=== PATIENT | female | born 1965 | race Caucasian/White ===

== ENCOUNTER → 2016-11-11 | Outpatient (CLI) | payer OTHER ==
[~2016-11-11] MED LIST: AUGMENTIN875 MG PO; BENADRYL50 MG PO; CARAFATE1 GM PO; COLACE100 MG PO; CYCLOBENZAPRINE10 MG PO; DESVENLAFAXINE50 MG PO; DICYCLOMINE HCL10 MG PO; DOCUSATE SODIU100 MG PO; DULOXETINE HCL60 MG PO; ESTRADIOL0.5 MG PO; FIORICET WI1 CAPSULE PO; FIORICET,ESG1 TABLET PO; FOLIC ACID0.8 MG PO; FOLIC ACID1 MG PO; HYDROCHLOROTH12.5 M3 PO; HYDROCODON-ACE1 EAC7 PO; IMITREX25 MG PO; IRON325 M1 PO; IRON325 MG PO; KHEDEZLA50 MG PO; LECITHIN1200 MG PO; LORTAB 5-325 M1 EACH PO; LYRICA75 MG PO; MEGESTROL ACETA20 MG PO; METOPROLOL SUCC50 MG PO; MOTRIN800 MG PO; MULTI VITAMIN1 EACH PO; NAPROXEN500 MG PO; NORCO 10/3251 TABLET PO; NORCO 5/3251 TABLET PO; OMEPRAZOLE40 M1 PO; OXYCODONE HCL5 MG PO; PEN-VEE K,VEET500 MG PO; PRILOSEC40 MG PO; PROAIR HFA8.5 GM IH; PROMETHAZINE HC25 M1 PO; PROPRANOLOL HCL80 M1 PO; REGLAN10 MG PO; RELPAX40 MG PO; SKELAXIN800 MG PO; SUCRALFATE1 GM PO; SUMATRIPTAN SUC50 MG PO; TIZANIDINE HCL4 MG PO; TOPAMAX100 MG PO; TOPAMAX25 MG PO; TOPIRAMATE50 MG PO; TRAZODONE HCL100 MG PO; TROKENDI XR100 MG PO; ULTRAM50 MG PO; VALIUM5 MG PO; VALTREX50 MG/ML PO; VOLTAREN 1% GE100 GM TP; ZOFRAN ODT4 MG PO; ZOFRAN4 MG PO; ZOMIG2.5 M1 NS; ZOMIG5 M1 NS
== END | disposition home or self-care (01) ==
LOC: NUC 10-30 09:00
DX: R94.8 Abnormal results of function studies of other organs and systems (principal); R10.13 Epigastric pain
CPT/HCPCS: 78264; A9541

== ENCOUNTER 2016-11-26 15:01 | Emergency (ER) | payer OTHER ==
[~2016-11-26] VITALS: Ht 157.5 cm; Wt 107.3 kg
[2016-11-26 18:57] VITALS: BP 155/100
== END 2016-11-26 18:59 | disposition home or self-care (01) ==
LOC: EME 15:01
DX: G43.909 Migraine, unspecified, not intractable, without status migrainosus (principal)
CPT/HCPCS: 99281; 99285; J1100; J1200; J1885; J7050

== ENCOUNTER → 2017-05-25 | Outpatient (CLI) | payer OTHER | END | disposition home or self-care (01) | DX: R26.2 Difficulty in walking, not elsewhere classified (principal); M25.562 Pain in left knee; M25.662 Stiffness of left knee, not elsewhere classified; M17.12 Unilateral primary osteoarthritis, left knee; M62.81 Muscle weakness (generalized); Z74.1 Need for assistance with personal care | CPT/HCPCS: 97161 GP; 97165 GO; 97530 GP; 97537 GO ==

== ENCOUNTER 2017-06-20 21:35 | Inpatient (IN) | payer OTHER ==
[~2017-06-20] VITALS: Ht 157.5 cm; Wt 109.8 kg
[~2017-06-20 21:35] MED LIST changes: +AMBIEN5 MG PO; +GABAPENTIN400 MG PO; +LINZESS145 MCG PO; +LORAZEPAM0.5 MG PO; +OPANA IR10 MG PO; +OXYMORPHONE HCL10 M1 PO; +REQUIP1 MG PO; +SEROQUEL300 MG PO
[2017-06-21 07:25] VITALS: BP 135/86
[2017-06-21 12:32] LABS: HEMATOCRIT 38.4 % (36.0-46.0); MCH 29.3 PG (29.0-34.0); MCHC 31.8 G/DL (30.0-36.0); MCV 92.1 FL (83-99); MEAN PLAT.VOLUME 10.1 uM^3 (9.5-12.4); PLATELET COUNT 176 K/uL (156-360); RED BLOOD COUNT 4.17 M/uL (3.80-5.20); WHITE BLOOD COUNT 9.9 K/uL (4.1-10.2)
[2017-06-21 14:32] VITALS: BP 142/97
[2017-06-21 15:49] VITALS: BP 152/99
[2017-06-21 19:50] VITALS: BP 161/84
[2017-06-22 00:26] VITALS: BP 127/68
[2017-06-22 04:03] VITALS: BP 124/73
[2017-06-22 05:05] LABS: HEMATOCRIT 34.1 % (36.0-46.0); MCV 90.7 FL (83-99)
[2017-06-22 05:59] LABS: ANION GAP 9 MEQ/L (2-14); CHLORIDE 105 MEQ/L (99-109); GFR ESTIMATE (CALCULATED) > 59 mL/min/; GLUCOSE 121 mg/dL (70-99); POTASSIUM 4.5 MEQ/L (3.7-5.4); SAMPLE HEMOLYSIS CHECK 0; SAMPLE ICTERIC CHECK 0; SAMPLE LIPEMIA CHECK 0; SODIUM 140 MEQ/L (136-147); UREA NITROGEN (BUN) 10 mg/dL (9-23)
[2017-06-22 07:08] VITALS: BP 121/72
[2017-06-22 11:40] VITALS: BP 119/69
[2017-06-22 15:51] VITALS: BP 123/78
[2017-06-22 20:17] VITALS: BP 135/78
[2017-06-23 00:01] VITALS: BP 138/79
[2017-06-23 04:20] VITALS: BP 124/70
[2017-06-23 06:16] LABS: HEMATOCRIT 32.5 % (36.0-46.0); MCV 93.4 FL (83-99)
[2017-06-23 08:07] VITALS: BP 112/63
[2017-06-23] MEDS ORDERED: LOVENOX40 MG/0.4 SC (08:34)
[2017-06-23] MEDS ORDERED: ENDOCET 5-3251 EACH PO (08:34)
[2017-06-23 11:42] VITALS: BP 101/58
== END 2017-06-23 14:54 | DRG 470 ==
LOC: ENRESERV 21:35 → 2SOUTH 06-21 06:46 → 3WEST 06-21 13:57 → 2SOUTH 06-21 14:06 → 3WEST 06-23 14:54
PROVIDERS: Orthopaedic Surgery
PROC: 0SRD0J9 Replacement of Left Knee Joint with Synthetic Substitute, Cemented, Open Approach (ICD-10-PCS; principal; 2017-06-21)
DX: M17.12 Unilateral primary osteoarthritis, left knee (principal); E66.9 Obesity, unspecified; Z68.41 Body mass index [BMI] 40.0-44.9, adult; I10 Essential (primary) hypertension; M79.7 Fibromyalgia; D50.9 Iron deficiency anemia, unspecified; K21.9 Gastro-esophageal reflux disease without esophagitis; G89.29 Other chronic pain; K25.7 Chronic gastric ulcer without hemorrhage or perforation; K58.9 Irritable bowel syndrome, unspecified; F41.8 Other specified anxiety disorders; Z86.010 Personal history of colon polyps; Z82.49 Family history of ischemic heart disease and other diseases of the circulatory system; Z83.3 Family history of diabetes mellitus
CPT/HCPCS: 73560; 80048; 85014; 85018; 85027; 97530 GO; C1713; J0131; J0690; J1170; J1650; J1885; J2250; J3010; J7050

== ENCOUNTER → 2017-10-18 | Outpatient (CLI) | payer OTHER ==
[~2017-10-18] VITALS: Ht 157.5 cm; Wt 110.2 kg
[~2017-10-18] MED LIST changes: +B-12 COMPL1000 MCG/1 IM; +ENDOCET 5-3251 EACH PO; +FLONASE ALLERG9.9 ML BOTH NARES; +LOVENOX40 MG/0.4 SC; +OMEGA-3 KRILL1 EAC3 PO; +SEROQUEL100 MG PO; +TIZANIDINE HCL2 MG PO; +TURMERIC COMPL1 EACH PO
== END | disposition home or self-care (01) ==
LOC: AMB 06:56
PROC: 0DB68ZX Excision of Stomach, Via Natural or Artificial Opening Endoscopic, Diagnostic (ICD-10-PCS; principal; 2017-10-18)
DX: K29.60 Other gastritis without bleeding (principal); D62 Acute posthemorrhagic anemia; Z80.0 Family history of malignant neoplasm of digestive organs; Z83.3 Family history of diabetes mellitus; Z82.49 Family history of ischemic heart disease and other diseases of the circulatory system; Z81.8 Family history of other mental and behavioral disorders; Z82.0 Family history of epilepsy and other diseases of the nervous system; Z88.5 Allergy status to narcotic agent; Z88.8 Allergy status to other drugs, medicaments and biological substances
CPT/HCPCS: 88305; 88342 TC

== ENCOUNTER 2017-12-26 19:16 | Emergency (ER) | payer OTHER ==
[~2017-12-26] VITALS: Ht 157.5 cm; Wt 72.7 kg
[2017-12-26 19:47] LABS: HEMATOCRIT 38.1 % (36.0-46.0); HEMOGLOBIN 12.6 G/DL (11.9-15.5); MCH 28.6 PG (29.0-34.0); MCHC 33.1 G/DL (30.0-36.0); MCV 86.4 FL (83-99); PLATELET COUNT 193 K/uL (156-360); RBC DIS.WIDTH-CV 13.5 % (11.8-14.6); RBC DIS.WIDTH-SD 42.1 % (39-53); RED BLOOD COUNT 4.41 M/uL (3.80-5.20)
[2017-12-26 20:00] LABS: CHLORIDE 105 mEq/L (99-109); SODIUM 139 mEq/L (136-147)
[2017-12-26 20:02] LABS: GLUCOSE 102 mg/dL (70-99)
[2017-12-26 20:06] LABS: CREATININE 1.1 mg/dL (0.6-1.3); GFR ESTIMATE (CALCULATED) 55 mL/min/
[2017-12-26 20:07] LABS: TROP-I INTERPRETATION NEGATIVE; TROPONIN-I < 0.01 ng/mL (0.0-0.30); UREA NITROGEN (BUN) 14 mg/dL (9-23)
[2017-12-26 21:08] LABS: CREATINE KINASE 126 IU/L (1-294)
[2017-12-26 22:14] LABS: APPEARANCE CLEAR ((CLEAR)); BILIRUBIN NEGATIVE; BLOOD NEGATIVE; COLOR YELLOW ((YELLOW)); GLUCOSE (STRIP) NEGATIVE; KETONES NEGATIVE; LEUKOCYTES NEGATIVE; NITRITE NEGATIVE; PROTEIN (STRIP) NEGATIVE; SPECIFIC GRAVITY 1.016 (1.000-1.030); UROBILINOGEN 0.2 MG/DL (0.2-1.0)
[2017-12-26] MEDS ORDERED: PREDNISONE20 MG PO (22:44)
[2017-12-26 23:05] VITALS: BP 146/94
== END 2017-12-26 23:05 | disposition home or self-care (01) ==
LOC: EME 19:16
PROVIDERS: Physician Assistant
DX: M79.7 Fibromyalgia (principal); R07.89 Other chest pain; G89.29 Other chronic pain; R53.1 Weakness; M79.605 Pain in left leg; G43.909 Migraine, unspecified, not intractable, without status migrainosus; Z87.19 Personal history of other diseases of the digestive system; Z96.652 Presence of left artificial knee joint; Z88.5 Allergy status to narcotic agent; Z88.8 Allergy status to other drugs, medicaments and biological substances
CPT/HCPCS: 71046; 80048; 81003; 82550; 84484; 85027; 93005; 93971; 99281; 99285; J1885; J7512

== ENCOUNTER 2018-03-01 09:46 | Day surgery (SDC) | payer OTHER ==
[~2018-03-01] VITALS: Ht 157.5 cm; Wt 115.7 kg
[~2018-03-01 09:46] MED LIST changes: +AMBIEN10 MG PO; +CYMBALTA30 MG PO; -DULOXETINE HCL60 MG PO; -GABAPENTIN400 MG PO; +LEVBID0.375 MG PO; +MS CONTIN,ORAMO15 M1 PO; +NEURONTIN300 MG PO; +PREDNISONE20 MG PO; +PRILOSEC20 MG PO; +ROXICODONE15 MG PO; -SEROQUEL100 MG PO; +SEROQUEL400 MG PO; +VALTREX1000 MG PO; -VALTREX50 MG/ML PO
== END 2018-03-01 11:30 | disposition home or self-care (01) ==
LOC: PAIN 09:46 → SDC 10:45 → PAIN 11:30
PROC: 3E0T3BZ Introduction of Anesthetic Agent into Peripheral Nerves and Plexi, Percutaneous Approach (ICD-10-PCS; principal; 2018-03-01)
PROC: 3E0T33Z Introduction of Anti-inflammatory into Peripheral Nerves and Plexi, Percutaneous Approach (ICD-10-PCS; principal; 2018-03-01)
PROC: BR141ZZ Fluoroscopy of Cervical Facet Joint(s) using Low Osmolar Contrast (ICD-10-PCS; principal; 2018-03-01)
DX: M47.812 Spondylosis without myelopathy or radiculopathy, cervical region (principal); M48.02 Spinal stenosis, cervical region; M47.816 Spondylosis without myelopathy or radiculopathy, lumbar region; M79.7 Fibromyalgia; I10 Essential (primary) hypertension; M25.562 Pain in left knee; G89.29 Other chronic pain; Z88.5 Allergy status to narcotic agent; Z88.8 Allergy status to other drugs, medicaments and biological substances
CPT/HCPCS: J1030; J2250; S0020

== ENCOUNTER 2018-03-08 07:01 | Day surgery (SDC) | payer OTHER ==
[~2018-03-08] VITALS: Ht 157.5 cm; Wt 115.7 kg
== END 2018-03-08 08:45 | disposition home or self-care (01) ==
LOC: PAIN 07:01 → SDC 07:45 → PAIN 08:45
DX: M47.812 Spondylosis without myelopathy or radiculopathy, cervical region (principal); M79.7 Fibromyalgia; M47.816 Spondylosis without myelopathy or radiculopathy, lumbar region; I10 Essential (primary) hypertension; K21.9 Gastro-esophageal reflux disease without esophagitis; Z88.5 Allergy status to narcotic agent; E66.9 Obesity, unspecified; Z68.42 Body mass index [BMI] 45.0-49.9, adult
CPT/HCPCS: J1030; J2250; J3010; S0020

== ENCOUNTER 2018-03-21 04:30 | Inpatient (IN) | payer OTHER ==
[~2018-03-21] VITALS: Ht 157.5 cm; Wt 120.0 kg
[2018-03-21 05:18] LABS: CHLORIDE 104 mEq/L (99-109); POTASSIUM 3.8 mEq/L (3.7-5.4); SODIUM 139 mEq/L (136-147)
[2018-03-21 05:21] LABS: GLUCOSE 140 mg/dL (70-99); TOTAL PROTEIN 6.5 g/dL (6.4-8.3)
[2018-03-21 05:22] LABS: TOTAL BILIRUBIN 0.5 mg/dL (0.0-1.0)
[2018-03-21 05:24] LABS: ALKALINE PHOSPHATASE 128 IU/L (3-129); CREATININE 0.8 mg/dL (0.6-1.3); GFR ESTIMATE (CALCULATED) > 59 mL/min/
[2018-03-21 05:25] LABS: UREA NITROGEN (BUN) 19 mg/dL (9-23)
[2018-03-21 05:26] LABS: AST (GOT) 35 IU/L (2-34); DIRECT BILIRUBIN 0.1 mg/dL (0.0-0.3)
[2018-03-21 05:27] LABS: ALT (GPT) 28 IU/L (3-49)
[2018-03-21 05:31] LABS: TROP-I INTERPRETATION NEGATIVE; TROPONIN-I < 0.01 ng/mL (0.0-0.30)
[2018-03-21 05:32] LABS: PTT 22.3 SEC (25-37)
[2018-03-21 05:40] LABS: BASOPHIL (%) 0.2 % (0-1); EOSINOPHIL (%) 0.8 % (0-5); EOSINOPHIL COUNT 0.1 K/uL (0-0.3); HEMATOCRIT 38.3 % (36.0-46.0); HEMOGLOBIN 12.7 G/DL (11.9-15.5); IMMATURE GRANULOCYTE (%) 0.3 % (0.0-0.7); LYMPHOCYTE (%) 13.7 % (15-42); LYMPHOCYTE COUNT 1.3 K/uL (1.0-2.8); MCH 30.4 PG (29.0-34.0); MCHC 33.2 G/DL (30.0-36.0); MCV 91.6 FL (83-99); MONOCYTE (%) 4.1 % (3-12); MONOCYTE COUNT 0.4 K/uL (0-0.8); NEUTROPHIL (%) 80.9 % (45-76); NEUTROPHIL COUNT 7.9 K/uL (1.8-6.4); PLATELET COUNT 150 K/uL (156-360); RBC DIS.WIDTH-CV 15.1 % (11.8-14.6); RBC DIS.WIDTH-SD 50.5 % (39-53); RED BLOOD COUNT 4.18 M/uL (3.80-5.20); WHITE BLOOD COUNT 9.8 K/uL (4.1-10.2)
[2018-03-21] MEDS ORDERED: CATAPRES0.1 MG PO (07:46)
[2018-03-21] MEDS ORDERED: LIPITOR20 MG PO (07:46)
[2018-03-21] MEDS ORDERED: BUSPAR7.5 MG PO (07:46)
[2018-03-21 08:56] VITALS: BP 131/60
[2018-03-21 11:31] VITALS: BP 108/64
[2018-03-21 14:28] LABS: APPEARANCE CLEAR ((CLEAR)); BILIRUBIN NEGATIVE; BLOOD NEGATIVE; COLOR YELLOW ((YELLOW)); GLUCOSE (STRIP) NEGATIVE; KETONES NEGATIVE; LEUKOCYTES NEGATIVE; NITRITE NEGATIVE; PROTEIN (STRIP) NEGATIVE; SPECIFIC GRAVITY 1.057 (1.000-1.030); UCUL ADDED? NO
[2018-03-21 19:40] VITALS: BP 117/63
[2018-03-21 23:17] VITALS: BP 101/54
[2018-03-22 04:18] VITALS: BP 118/60
[2018-03-22 06:15] LABS: CHLORIDE 107 MEQ/L (99-109); CREATININE 0.7 MG/DL (0.6-1.3); GFR ESTIMATE (CALCULATED) > 59 mL/min/; POTASSIUM 3.7 MEQ/L (3.7-5.4); SODIUM 139 MEQ/L (136-147); UREA NITROGEN (BUN) 11 mg/dL (9-23)
[2018-03-22 06:17] LABS: GLUCOSE 91 mg/dL (70-99)
[2018-03-22 07:05] LABS: BASOPHIL (%) 0.3 % (0-1); EOSINOPHIL COUNT 0.2 K/uL (0-0.3); HEMATOCRIT 30.2 % (36.0-46.0); IMMATURE GRANULOCYTE (%) 0.3 % (0.0-0.7); LYMPHOCYTE (%) 17.4 % (15-42); LYMPHOCYTE COUNT 1.6 K/uL (1.0-2.8); MCHC 32.5 G/DL (30.0-36.0); MCV 92.4 FL (83-99); MONOCYTE (%) 5.7 % (3-12); MONOCYTE COUNT 0.5 K/uL (0-0.8); NEUTROPHIL (%) 74.3 % (45-76); PLATELET COUNT 130 K/uL (156-360); RBC DIS.WIDTH-CV 15.3 % (11.8-14.6); RBC DIS.WIDTH-SD 51.8 % (39-53); WHITE BLOOD COUNT 9.5 K/uL (4.1-10.2)
[2018-03-22 07:09] LABS: HEMOGLOBIN 9.8 G/DL (11.9-15.5); RED BLOOD COUNT 3.27 M/uL (3.80-5.20)
[2018-03-22 08:01] VITALS: BP 116/72
[2018-03-22 16:57] VITALS: BP 126/60
[2018-03-22 19:00] VITALS: BP 100/65
[2018-03-22 23:09] VITALS: BP 138/74
[2018-03-23 03:24] VITALS: BP 103/56
[2018-03-23 06:14] LABS: HEMATOCRIT 32.8 % (36.0-46.0); HEMOGLOBIN 10.4 G/DL (11.9-15.5); MCH 29.5 PG (29.0-34.0); MCHC 31.7 G/DL (30.0-36.0); MCV 93.2 FL (83-99); PLATELET COUNT 158 K/uL (156-360); RBC DIS.WIDTH-CV 14.8 % (11.8-14.6); RED BLOOD COUNT 3.52 M/uL (3.80-5.20); WHITE BLOOD COUNT 7.9 K/uL (4.1-10.2)
[2018-03-23 07:25] VITALS: BP 117/68
[2018-03-23 11:38] VITALS: BP 122/70
[2018-03-23] MEDS ORDERED: METOPROLOL SUCC50 MG PO (12:53)
[2018-03-23] MEDS ORDERED: AUGMENTIN875 MG PO (12:55)
== END 2018-03-23 14:11 | disposition home or self-care (01) | DRG 194 ==
LOC: EME 04:30 → EDOF 05:56 → ENRESERV 06:05 → 5EAST 08:23
PROVIDERS: Emergency Medicine; Hospitalist; Physician Assistant
DX: J15.9 Unspecified bacterial pneumonia (principal); R09.02 Hypoxemia; M79.7 Fibromyalgia; M54.9 Dorsalgia, unspecified; M47.9 Spondylosis, unspecified; G89.29 Other chronic pain; D50.9 Iron deficiency anemia, unspecified; I10 Essential (primary) hypertension; E66.01 Morbid (severe) obesity due to excess calories; G43.909 Migraine, unspecified, not intractable, without status migrainosus; D64.9 Anemia, unspecified; Z90.710 Acquired absence of both cervix and uterus; Z96.652 Presence of left artificial knee joint; Z79.891 Long term (current) use of opiate analgesic; Z68.42 Body mass index [BMI] 45.0-49.9, adult; Z87.11 Personal history of peptic ulcer disease
CPT/HCPCS: 71045; 71275; 80048; 80076; 80202; 81003; 83605; 83880; 84484; 85025; 85027; 85379; 85610; 85730; 87070; 87205; 87449; 93005; 93970; 93971; 94640; 94760; 94799; 99281; 99285; J0696; J1650; J1885; J2405; J3370; J7030; J7050; J7120